=== PATIENT | male | born 1980 | race Caucasian/White ===

== ENCOUNTER 2024-08-18 12:07 | Emergency (ER) | payer SELFPAY ==
[~2024-08-18] VITALS: Ht 182.9 cm; Wt 105.0 kg
[2024-08-18 12:15] VITALS: O2SAT 98
[2024-08-18 12:24] VITALS: BP 168/98; PULSE 71; RESP 16; TEMP 98.6; O2SAT 96
[2024-08-18 12:49] LABS: BASOPHILS % 0.6 % (0.0-2.0); EOSINOPHILS % 2.4 % (0.0-5.0); HEMATOCRIT. 44.2 % (42.0-52.0); HEMOGLOBIN. 14.7 g/dL (14.0-18.0); LYMPHOCYTES % 33.3 % (20.0-50.0); MEAN CORPUSCULAR HGB CONC 33.1 g/dL (31.0-37.0); MEAN CORPUSCULAR VOLUME 90.6 fL (80.0-94.0); MEAN PLATELET VOLUME 7.7 fl (7.4-10.4); NEUTROPHILS % 55.7 % (40.0-76.0); PLATELET 231 x1000/uL (130-400); RED BLOOD CELL COUNT 4.88 mill/uL (4.7-6.1); RED CELL DISTRIBUTION WIDTH 14.2 % (11.6-14.6); WHITE BLOOD COUNT 7.3 x1000/uL (4.5-11.0)
[2024-08-18 13:01] LABS: CHLORIDE 107 mEq/L (98-107); POTASSIUM 3.8 mEq/L (3.5-5.1); SODIUM 143 mEq/L (136-145)
[2024-08-18 13:02] LABS: CALCIUM 9.3 mg/dL (8.7-10.4); CARBON DIOXIDE 30 mEq/L (21-32)
[2024-08-18 13:07] LABS: CREATININE 0.9 mg/dL (0.6-1.3); GLUCOSE 134 mg/dL (70-105); UREA NITROGEN BLOOD 14 mg/dL (9-23)
[2024-08-18] MEDS: IBUPROFEN 800MG TABLET PO ONE (14:08)
[2024-08-18] MEDS: ACETAMINOPHEN 325MG TABLET PO ONE (14:08)
[2024-08-18] MEDS: SODIUM CHLORIDE 0.9% 1,000 ML IV ONE (14:08)
[2024-08-18 14:47] LABS: CLARITY URINE CLOUDY (CLEAR); COLOR URINE YELLOW (YELLOW); GLUCOSE URINE NEGATIVE (NEGATIVE); KETONES URINE NEGATIVE (NEGATIVE); NITRITE URINE NEGATIVE (NEGATIVE); OCCULT BLOOD URINE NEGATIVE (NEGATIVE); PH URINE 8.5 (4.5-8.0); PROTEIN URINE NEGATIVE (NEGATIVE); SPECIFIC GRAVITY URINE 1.021 (1.005-1.030); UROBILINOGEN URINE 0.2 E.U./dL (0.2-1.0)
[2024-08-18 14:48] LABS: LEUKOCYTE ESTERASE URINE NEGATIVE (NEGATIVE)
[2024-08-18 15:25] LABS: AMORPHOUS SEDIMENT URINE 2+ /lpf; BACTERIA URINE 2+; RBC URINE NONE SEEN /hpf (0-2); SQUAMOUS EPITHELIAL CELL URINE RARE /lpf (RARE/1+); WBC URINE 0-2 /hpf (0-2)
[2024-08-18] MEDS ORDERED: TAMS-11 MT (16:09)
[2024-08-18] MEDS ORDERED: IBUP-1525 MT (16:09)
[2024-08-18] MEDS ORDERED: TOPUD MT (16:09)
== END 2024-08-18 16:27 | disposition home or self-care (01) ==
LOC: ER 12:07
DX: N23 Unspecified renal colic (principal); I63.9 Cerebral infarction, unspecified; I10 Essential (primary) hypertension
CPT/HCPCS: 80048; 81003; 83690; 85025; 36415; 74176; 96360; 99284; J7030; Z7610